=== PATIENT | female | born 1995 | race Two or more races ===

== ENCOUNTER 2018-11-28 00:44 | Inpatient (IN) | payer OTHER ==
[~2018-11-28] VITALS: Ht 160 cm; Wt 45.4 kg
[2018-11-28] MEDS ORDERED: NKM (00:53)
--- NOTE | 2018-11-28 00:53 | Emergency Room Report ---
History of Present Illness General Chief Complaint: To Be Triaged Source: Patient Present Illness HPI Is a 22-year-old female who is 3, para 2, a 1. She presents with chief complaint of syncope and weakness. She had an elective at [facility] a month ago. She was about 8 weeks . Since then she's been having vaginal bleeding every day. She said she goes through about 20 pads and 20 tampons a week. Tonight she said bleeding is about 2-3 pads an hour. Has cramping pain. When she stood up she passed out. This occurred 3 times tonight. No head trauma. No nausea no vomiting. No fever chills. Has appointment for follow-up tomorrow. Allergies: Coded Allergies: No Known Allergies (Unverified , 11/28/18) Patient History Past Medical History: see triage record, old chart reviewed Past Surgical History: other Pertinent Family History: none Social History: Denies: smoking Now: No Immunizations: other Reviewed Nursing Documentation: PMH: Agreed; PSxH: Agreed Review of Systems Eye: Denies: eye pain, blurred vision ENT: Denies: ear pain, nose congestion, throat swelling Respiratory: Denies: cough, shortness of breath Cardiovascular: Reports: syncope; Denies: chest pain, palpitations Gastrointestinal: Denies: abdominal pain, diarrhea, nausea, vomiting Genitourinary: Reports: vag bleed/dc Musculoskeletal: Denies: back pain, joint pain Skin: Denies: rash Neurological: Denies: headache, numbness Endocrine: Denies: increased thirst, increased urine Hematologic/Lymphatic: Denies: easy bruising All Other Systems: negative except mentioned in HPI Physical Exam vitals normal Sp02 EP Interpretation: reviewed, normal General Appearance: well appearing, no apparent distress, alert Head: normocephalic, atraumatic Eyes: bilateral eye PERRL, bilateral eye EOMI, bilateral eye conjunctivae pale ENT: hearing grossly normal, normal pharynx Neck: full range of motion, supple, no meningismus Respiratory: chest non-tender, lungs clear, normal breath sounds Cardiovascular #1: regular rate, rhythm, no murmur Gastrointestinal: normal bowel sounds, non tender, no mass, no organomegaly, no bruit, non-distended Genitourinary: other - Pelvic exam done with female nurse as RN. External exam normal. Internal exam showed slow bleeding from the os. Os is about fingertip open. Uterus is normal size. Musculoskeletal: back normal, normal range of motion Neurologic: alert, oriented x3 Psychiatric: mood/affect normal Skin: warm/dry, other - She is very pale Procedures Critical Care Time Critical Care Time Critical care is mandated in this patient who presented with severe anemia from vaginal bleeding, required blood transfusion. Patient require my urgent intervention to attenuate the risks of metabolic collapse which may lead to cardiovascular collapse and . Critical care time is 35 minutes excluding any reportable procedure. Critical care time included evaluation, multiple reevaluation, looking at old charts, interpreting laboratory and diagnostic data , discussing case with patient and family and consultants, and charting. Medical Decision Making Diagnostic Impression: Primary Impression: Syncope Qualified Codes: R55 - Syncope and collapse Additional Impressions: Anemia Qualified Codes: D64.9 - Anemia, unspecified Retained products of conception UTI (urinary tract infection) Qualified Codes: N30.00 - Acute cystitis without hematuria ER Course Patient presents with syncope secondary to severe anemia and hypovolemia. This is secondary to vaginal bleeding from a retained products of conception. Patient given IV fluid and 2 units of blood ordered. She felt better now. She will be admitted for blood transfusion and IV fluid. I discussed the case with Dr. Carson who will admit. I discussed the case with Dr. Hanna, ACADEMIC PROGRAM SPECIALIST. He will see patient in the morning. She may need a D&C. Lab Results Impression labs with anemia EKG Diagnostic Results Rate: normal Rhythm: NSR ST Segments: no acute changes Rhythm Strip Diag. Results EP Interpretation: yes Rate: 99 Rhythm: NSR, no PVC's, no ectopy CT/MRI/US Diagnostic Results CT/MRI/US Diagnostic Results : Imaging Test Ordered: Pelvic ultrasound Impression Read by radiologist. Small amount of echogenic material in the uterus. This may represent retained products of conception. Status: improved Disposition: ADMITTED INPATIENT Condition: Serious Tigre Goodwin MD November 28, 2018 00:53
[2018-11-28 01:15] LABS: HEMATOCRIT 18.9 % (37.0-47.0); MEAN CORPUSCULAR VOLUME 81 FL (80-99); PLATELET COUNT 261 K/UL (150-450); RED BLOOD COUNT 2.34 M/UL (4.20-5.40); RED CELL DISTRIBUTION WIDTH 13.6 % (11.6-14.8); WHITE BLOOD COUNT 13.1 K/UL (4.8-10.8)
[2018-11-28 01:18] LABS: HEMOGLOBIN 6.2 G/DL (12.0-16.0)
[2018-11-28 01:29] LABS: ANION GAP 9 mmol/L (5-15); BLOOD UREA NITROGEN 13 mg/dL (7-18); CALCIUM 8.6 MG/DL (8.5-10.1); CARBON DIOXIDE 25 MMOL/L (21-32); CHLORIDE 105 MMOL/L (98-107); CREATININE 0.6 MG/DL (0.55-1.30); INR 1.3 (0.9-1.1); POTASSIUM 3.3 MMOL/L (3.5-5.1); SODIUM 139 MMOL/L (136-145)
[2018-11-28 02:05] LABS: APPEARANCE,URINE SLIGHTLY CLOUDY; BILIRUBIN, URINE NEGATIVE (NEGATIVE); COLOR,URINE PALE YELLOW; GLUCOSE, URINE (UA) NEGATIVE (NEGATIVE); KETONES,URINE 1+ (NEGATIVE); LEUKOCYTE ESTERASE ,URINE 2+ (NEGATIVE); NITRITE,URINE NEGATIVE (NEGATIVE); PH,URINE 5 (4.5-8.0); PROTEIN,URINE 3+ (NEGATIVE); UROBILINOGEN,URINE NORMAL MG/DL (0.0-1.0)
[2018-11-28] MEDS ORDERED: cefTRIAXone 1 GM in NS 55 ML IVPB ONE (02:30)
[2018-11-28 03:14] VITALS: BP 122/60
[2018-11-28 08:00] VITALS: BP 95/45
--- NOTE | 2018-11-28 10:00 | Diagnostic Imaging Report ---
Indication: 22-year-old female vaginal bleeding. History of recent . Current status unknown. Technique: Grayscale and duplex Doppler imaging of the pelvis performed utilizing a transabdominal scan and endovaginal scan. Comparison: None Findings: There is distention of the endometrium due to heterogeneous material likely blood. Retained products of conception not excluded. status is unknown. The uterus measures 8.7 x 5.8 x 4.6 cm. There is dopplerable blood flow within both ovaries. There is a dominant simple cyst in the left ovary measuring about 4.8 cm. The right ovary measures 3.7 x 3 x 2.2 cm. There is no free fluid. IMPRESSION: Heterogeneous blood within the endometrial canal. Retained products not excluded. Dominant approximately 5 cm left ovarian cyst. Suggest follow-up at 6 weeks.
[2018-11-28 10:20] VITALS: BP 98/51
[2018-11-28 12:00] VITALS: BP 94/48
[2018-11-28 15:30] VITALS: BP 93/57
--- NOTE | 2018-11-28 17:42 | Cardiology Report ---
APPROVED REPORT EKG Measurement Heart [id number] Normal sinus rhythm with sinus arrhythmia Normal ECG
[2018-11-28 18:36] LABS: APPEARANCE,URINE VERY CLOUDY; BILIRUBIN, URINE NEGATIVE (NEGATIVE); COLOR,URINE RED; GLUCOSE, URINE (UA) NEGATIVE (NEGATIVE); KETONES,URINE NEGATIVE (NEGATIVE); LEUKOCYTE ESTERASE ,URINE 2+ (NEGATIVE); NITRITE,URINE NEGATIVE (NEGATIVE); PH,URINE 8 (4.5-8.0); PROTEIN,URINE 3+ (NEGATIVE); UROBILINOGEN,URINE NORMAL MG/DL (0.0-1.0)
[2018-11-28 20:00] VITALS: BP 101/56
--- NOTE | 2018-11-28 20:30 | History and Physical Report ---
DATE OF ADMISSION: 11/28/2018 HISTORY OF PRESENT ILLNESS: The patient is 23-year-old female who came to the emergency room for severe anemia, syncopal episode, weakness, premature for almost a month but has been bleeding. The patient also found to have UTI. The patient supposed to see PIPER INSTALLER outpatient, had no appointment, seen only today. The patient came to the emergency room for syncopal episode. The patient denies any fever or chills. PAST MEDICAL HISTORY: None. PHYSICAL EXAMINATION: GENERAL: This is a young female, currently in the bed, comfortable, sitting and eating lunch. VITAL SIGNS: Blood pressure 93/57, pulse 86, respirations 20, and temperature 97. HEENT: NAD. CHEST: Bilaterally clear. CARDIOVASCULAR: Regular rhythm. No gallop. No murmur. ABDOMEN: Soft. Positive bowel sounds. Mild tenderness. EXTREMITIES: CCE. NEUROLOGICAL: Generalized weakness. LABORATORY EXAMINATION: White counts are 13,000, hemoglobin 6.2, hematocrit 19, platelets 261. Chemistry panel, sodium 139, potassium 3.3, BUN 13, creatinine 0.6, glucose 130. Urine showing 2+ leukocyte esterase and wbc's 20 to 30. ASSESSMENT AND PLAN: 1. Syncope. 2. Severe anemia. 3. Urinary tract infection. 4. Termination of . PLAN: We will currently continue IV fluid. Type and cross transfuse two units. PIPER INSTALLER consult. CBC tomorrow. Follow up the labs. Alden Carson M.D. DR: Tyler JOB#: [id number] CC:
[2018-11-29] VITALS: BP 103/59
[2018-11-29 04:00] VITALS: BP 109/64
[2018-11-29 06:59] LABS: ALANINE AMINOTRANSFERASE 17 U/L (12-78); ALBUMIN 3.2 G/DL (3.4-5.0); ALBUMIN/GLOBULIN RATIO 1.1 (1.0-2.7); ALKALINE PHOSPHATASE 36 U/L (46-116); ANION GAP 5 mmol/L (5-15); ASPARTATE AMINO TRANSFERASE 10 U/L (15-37); BILIRUBIN,TOTAL 0.3 MG/DL (0.2-1.0); BLOOD UREA NITROGEN 9 mg/dL (7-18); CALCIUM 8.4 MG/DL (8.5-10.1); CARBON DIOXIDE 27 MMOL/L (21-32); CHLORIDE 107 MMOL/L (98-107); CREATININE 0.5 MG/DL (0.55-1.30); SODIUM 139 MMOL/L (136-145)
[2018-11-29 07:10] LABS: BASOPHILS % (AUTO) 1.5 % (0.0-2.0); EOSINOPHILS % (AUTO) 2.8 % (0.0-3.0); HEMATOCRIT 24.6 % (37.0-47.0); HEMOGLOBIN 8.1 G/DL (12.0-16.0); LYMPHOCYTES % (AUTO) 34.4 % (20.0-45.0); MEAN CORPUSCULAR VOLUME 83 FL (80-99); MONOCYTES % (AUTO) 8.8 % (1.0-10.0); NEUTROPHILS % (AUTO) 52.5 % (45.0-75.0); PLATELET COUNT 233 K/UL (150-450); RED BLOOD COUNT 2.97 M/UL (4.20-5.40); RED CELL DISTRIBUTION WIDTH 13.8 % (11.6-14.8); WHITE BLOOD COUNT 7.6 K/UL (4.8-10.8)
[2018-11-29 07:59] VITALS: BP 80/40
--- NOTE | 2018-11-29 11:59 | Diagnostic Imaging Report ---
Indication: Vaginal bleeding, history of medical October 2018. Beta hCG 22 Technique: Transabdominal and transvaginal images of the pelvis. Doppler interrogation of the bilateral ovaries Comparison: 11/28/2018 Findings: Uterus measures 11.2 cm length by 3.7 cm AP. Endometrium measures 14 mm thick. Within the endometrium is a small area of heterogeneous material, somewhat discrete, measuring 2 x 2 x 1.5 cm. Previously demonstrated endometrial fluid is less evident than previously. The right ovary measures 4.6 cm in length. It is unremarkable. The left ovary demonstrates a 5.8 x 5.3 x 4.5 cm cyst. This was also demonstrated on the prior exam. Both ovaries demonstrate normal blood flow. There is trace free cul-de-sac fluid noted. Impression: No intrauterine demonstrated. Positive beta-hCG is most likely residual from recently medically terminated , but the possibilities of very early , ectopic should also be considered Mildly thickened endometrium, likely related to the above. Heterogeneous material within the endometrium is nonspecific in appearance, could indicate retained blood or retained products of conception. There does appear to be slightly less fluid than that seen on exam of one day earlier 5.8 cm diameter left ovarian cyst, most likely a corpus luteum cyst. Follow-up probably benign corpus luteum cyst. Recommend follow-up sonography in one year Trace free pelvic fluid, most likely physiologic
[2018-11-29 12:00] VITALS: BP 89/54
--- NOTE | 2018-11-29 22:15 | Discharge Summary ---
DATE OF ADMISSION: 11/28/2018 DATE OF DISCHARGE: 11/29/2018 HOSPITAL COURSE: This is an elderly 23-year-old female who came to the emergency room for having severe anemia and syncopal episode. She was passed out and was found to have hemoglobin of 6.1. The patient . The patient had termination of about 3 weeks ago, has been slowly bleeding. EYELET MACHINE OPERATOR consult was obtained. The patient is cleared by EYELET MACHINE OPERATOR, going home, follow up as an outpatient. The patient also had a transfusion of one unit of blood. Her hemoglobin currently is 8.1. The patient is asymptomatic. She is going to go home, follow up as outpatient with primary care. DISCHARGE DIAGNOSES: 1. Severe anemia. 2. Syncope. 3. Termination of . DIET: She is on regular diet. ACTIVITY: As tolerated. DISCHARGE MEDICATIONS: The patient was given prescriptions for iron and folic acid. Alden Carson M.D. DR: VICKY JOB#: [id number] CC:
== END 2018-11-29 12:16 | disposition home or self-care (01) | DRG 663 ==
LOC: EMR 00:57 → EDBD 00:57 → EDBEDREQ 01:25 → 2E 01:53 → EDBEDREQ 02:08
PROC: 30233N1 Transfusion of Nonautologous Red Blood Cells into Peripheral Vein, Percutaneous Approach (ICD-10-PCS; principal; 2018-11-28)
DX: D50.0 Iron deficiency anemia secondary to blood loss (chronic) (principal); N39.0 Urinary tract infection, site not specified; O04.6 Delayed or excessive hemorrhage following (induced) termination of pregnancy; R55 Syncope and collapse
CPT/HCPCS: 36415; 76801; 76830; 76856; 80048; 80053; 81001; 81025; 84702; 85007; 85025; 85610; 85730; 86850; 86900; 86901; 86920; 87086; 93005; 96361; 96365; 99291

== ENCOUNTER 2019-03-05 22:58 | Emergency (ER) | payer OTHER ==
[~2019-03-05] VITALS: Ht 152.4 cm; Wt 54.4 kg
[~2019-03-05 22:58] MED LIST: NKM
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
--- NOTE | 2019-03-05 23:15 | NUR ---
ED Nurse Note: iv access established. blood and urine collected; sent down to lab.
[2019-03-05 23:27] VITALS: BP 112/58
--- NOTE | 2019-03-05 23:43 | NUR ---
ED Nurse Note: ermd at bedside for us.
[2019-03-05 23:58] LABS: APPEARANCE,URINE SLIGHTLY CLOUDY; BILIRUBIN, URINE NEGATIVE (NEGATIVE); GLUCOSE, URINE (UA) NEGATIVE (NEGATIVE); KETONES,URINE 1+ (NEGATIVE); LEUKOCYTE ESTERASE ,URINE 1+ (NEGATIVE); NITRITE,URINE NEGATIVE (NEGATIVE); PH,URINE 7 (4.5-8.0); PROTEIN,URINE 1+ (NEGATIVE); UROBILINOGEN,URINE 1 MG/DL (0.0-1.0)
[2019-03-06] LABS: BASOPHILS % (AUTO) 2.2 % (0.0-2.0); EOSINOPHILS % (AUTO) 0.7 % (0.0-3.0); HEMATOCRIT 31.7 % (37.0-47.0); HEMOGLOBIN 9.6 G/DL (12.0-16.0); LYMPHOCYTES % (AUTO) 26.8 % (20.0-45.0); MEAN CORPUSCULAR VOLUME 68 FL (80-99); MONOCYTES % (AUTO) 5.2 % (1.0-10.0); NEUTROPHILS % (AUTO) 65.1 % (45.0-75.0); PLATELET COUNT 387 K/UL (150-450); RED BLOOD COUNT 4.69 M/UL (4.20-5.40); RED CELL DISTRIBUTION WIDTH 17.4 % (11.6-14.8); WHITE BLOOD COUNT 10.1 K/UL (4.8-10.8)
[2019-03-06] MEDS ORDERED: Acetaminophen 500mg (ES) tab ORAL ONE
[2019-03-06 00:12] LABS: ANION GAP 7 mmol/L (5-15); BLOOD UREA NITROGEN 9 mg/dL (7-18); CALCIUM 9.5 MG/DL (8.5-10.1); CARBON DIOXIDE 29 MMOL/L (21-32); CHLORIDE 102 MMOL/L (98-107); CREATININE 0.8 MG/DL (0.55-1.30); POTASSIUM 2.9 MMOL/L (3.5-5.1); SODIUM 138 MMOL/L (136-145)
[2019-03-06 00:17] LABS: ALANINE AMINOTRANSFERASE 12 U/L (12-78); ALBUMIN 4.2 G/DL (3.4-5.0); ALKALINE PHOSPHATASE 45 U/L (46-116); ASPARTATE AMINO TRANSFERASE 10 U/L (15-37); BILIRUBIN,TOTAL 0.4 MG/DL (0.2-1.0)
--- NOTE | 2019-03-06 00:20 | NUR ---
ED Nurse Note: pt down to imaging for us
[2019-03-06 00:32] LABS: COLOR,URINE YELLOW
[2019-03-06] MEDS ORDERED: ACETAMINOPHEN500 M3 ORAL (01:27)
[2019-03-06 01:44] VITALS: BP 110/66
--- NOTE | 2019-03-06 01:44 | NUR ---
ER DISCHARGE NOTE: Patient is cleared to be discharged per ERMD, pt is aox4, on room air, with stable vital signs. accompanied by spouse. pt was given dc and prescription instructions, pt was able to verbalize understanding, pt id band and iv site removed without complications. pt is able to ambulate with steady gait. pt took all belongings.
--- NOTE | 2019-03-06 01:52 | Diagnostic Imaging Report ---
Indication:Lower abdominal and pelvic pain Technique: Grayscale and duplex Doppler imaging of the pelvis performed utilizing a transabdominal and endovaginal scan. Comparison: None Findings: 6.5 mm cystic focus in the central part of the uterus within the endometrium may be early gestational sac but is nonspecific at this point. There is no pole or yolk sac identified. Findings could represent early IUP or pseudogestational sac or nonpregnancy related cystic focus. There is dopplerable blood flow within both ovaries which appear normal. The right ovary measures 2.4 x 1.9 x 1.6 cm. The left ovary is 2 x 2 0.2 x 1.8 cm. There is no free fluid. IMPRESSION: Nonspecific cystic focus in the endometrium. Considerations include early IUP, pseudogestational sac or other endometrial cyst. Recommend follow-up ultrasound and correlation with serial quantitative beta-hCG. Ectopic is not excluded. [facility] has communicated the preliminary results to the Emergency Department. Their findings are largely concordant with this report.
--- NOTE | 2019-03-06 11:06 | Diagnostic Imaging Report ---
Indication: Neck Pain Findings: 5 views of the cervical spine were obtained. There is no acute fracture identified. Alignment is normal. The open-mouth odontoid view shows an intact dens and good alignment of the lateral masses with respect to the body of C2. There is no soft tissue swelling. Oblique views show widely patent neural foramina. Impression: Negative cervical spine examination.
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
== END 2019-03-06 01:44 | disposition home or self-care (01) ==
LOC: EMR 23:42
DX: O26.90 Pregnancy related conditions, unspecified, unspecified trimester (principal); Z3A.00 Weeks of gestation of pregnancy not specified; M54.2 Cervicalgia; R51 Headache; S16.1XXA Strain of muscle, fascia and tendon at neck level, initial encounter; V43.62XA Car passenger injured in collision with other type car in traffic accident, initial encounter; Y92.410 Unspecified street and highway as the place of occurrence of the external cause
CPT/HCPCS: 36415; 72050; 76830; 76856; 80053; 81003; 83690; 84702; 85025; 86850; 86900; 86901; 96360; 99284; J8499